=== PATIENT | male | born 1985 | race Caucasian/White ===

== ENCOUNTER → 2021-06-28 11:09 | Outpatient (BNVA) | payer SELFPAY | PROVIDERS: Visit Provider Physician Assistant Medical | DX: Z02.79 Encounter for issue of other medical certificate (principal) ==

== ENCOUNTER 2024-10-30 03:12 | Emergency (ER) | payer OTHER, SELFPAY ==
[2024-10-30 03:14] VITALS: BP 167/89; PULSE 84; RESP 18; TEMP 36.4; O2SAT 94; BMI 55.5
--- NOTE | 2024-10-30 03:50 | ED.GENADULT ---
HPI - General Adult General Chief complaint: General Medical Stated complaint: exposure Time Seen by Provider: 10/30/24 03:28 Source: patient Mode of arrival: ambulatory Limitations: no limitations History of Present Illness ED Provider: PURA FOSTER narrative: 39 yo male who works on [employer] and a male patient who tends to touch his rectum and there is feces sometimes on hand was walking past him and the patient put his hand in Fifi mouth. No sig soiled hands. Discussed exposure risk there is nothing with HIV but Hep A will test now if he is worried. MD complaint: fecal exposure Onset (ago): minute(s) ([employer]) Radiation: non-radiation Severity: moderate Relieving factors: none Exacerbating factors: none Associated symptoms: denies other symptoms Treatments prior to arrival: none Related Data Allergies Allergy/AdvReac Type Severity Reaction Status Date / Time shellfish derived Allergy Anaphylaxis Verified 10/30/24 03:20 Review of Systems Review of Systems: Constitutional : No Fever, No Chills, No Fatigue ENT/Mouth : No sore throat, No Rhinorrhea Eyes: No Eye Pain, No Swelling, No Redness Cardiovascular : No Chest Pain, No SOB, No Dyspnea on Exertion Respiratory : No Cough, No Sputum Gastrointestinal : No Nausea, No Vomiting, No Diarrhea, No abdominal Pain Genitourinary : No Dysuria, No Urinary Frequency, No Hematuria, Musculoskeletal : No joint pain, No Myalgias, No Joint Swelling Skin : No Skin Lesions, No rash All other systems reviewed and are negative [facility] Past Medical History Attestation statement: The following information was validated with the patient. Source: old records reviewed Social History Social History (Updated 10/30/24 @ 03:54 by Padmini Conde DO) Patient Tobacco Use Status: Never used Tobacco Physical Exam ED Vital Signs: Vital Signs - 24 hr 10/30/24 03:14 Temperature 97.6 F Pulse Rate 84 Respiratory Rate 18 Blood Pressure 167/89 H Pulse Oximetry 94 Oxygen Delivery Method Room Air BMI result Body Mass Index 55.5 Appearance: Alert. Oriented X3. No acute distress. Eyes: Pupils equal, round and reactive to light. ENT: Pharynx normal. Neck: Normal inspection. Neck supple. CVS: Pulses normal. Respiratory: No respiratory distress. Abdomen: Soft and nontender. Skin: Skin warm and dry. Normal skin color. Extremities: No lower extremity edema. Neuro: Oriented X 3. No motor deficit. No sensory deficit. Medical Decision Making Medical Decision Making [facility] Narrative: 39 yo male with work possible fecal exposure in his mouth at this time no concern for HIV, there is no trauma will obtain hep panel and he can follow up with PCP Differential Diagnosis Differential Diagnoses: The differential diagnosis associated with the presentation includes fecal exposure Lab Data [facility] Lab Attestation statement: I reviewed the patient's lab results. Discharge Plan Discharge Clinical Impression: Hx of exposure to hazardous bodily fluids Patient Disposition: Home, Self-Care Instructions: Body Substance Exposure (ED) Additional Instructions: return for fevers, diarrhea, abdominal pain sent off hep panel takes a day or two to come back if positive we will call you follow up with your doctor as needed Stand Alone Forms: Work/School Release Print Language: Indonesian
[2024-10-30 04:06] VITALS: BP 167/89; PULSE 84; RESP 18; TEMP 36.4; O2SAT 94
[2024-10-30 07:56] LABS: HBS Num1 78.02 mIU/mL (0-7.99); HBc Num1 0.33 S/CO (0.00-0.79); HBsAGNum1 0.39 S/CO (0.00-0.99); Hepatitis A Antibody IgM 0.17 Index (0-0.79); Hepatitis B Core Antibody Nonreactive (Nonreactive); Hepatitis B Surface Antigen Negative (Negative); ~HepC Num1 0.08 S/CO (0.00-0.79); ~Hepatitis A Antibody IgM Nonreactive (Nonreactive); ~Hepatitis B Surface Antibody REACTIVE (Nonreactive); ~Hepatitis C Antibody Nonreactive (Nonreactive)
== END 2024-10-30 04:08 | disposition home or self-care (01) ==
PROVIDERS: Emergency Provider Emergency Medicine
DX: Z04.2 Encounter for examination and observation following work accident (principal); Z77.21 Contact with and (suspected) exposure to potentially hazardous body fluids
CPT/HCPCS: 36415; 86704; 86706; 86709; 86803; 87340; 99283; 99284